=== PATIENT | male | born 1960 | race Caucasian/White ===

== ENCOUNTER 2018-10-02 11:01 | Emergency (ER) | payer OTHER ==
[2018-10-02] MEDS ORDERED: Sodium Chloride 0.9% 10 ML Syringe FLUSH PRN ×2 (11:10→12:11)
--- NOTE | 2018-10-02 11:11 | EDM.PDOC ---
ED HPI GENERAL MEDICAL PROBLEM - General Chief Complaint: Flank Pain Stated Complaint: FLANK PAIN Time Seen by Provider: 10/02/18 11:11 Source of Information: Reports: Patient History Limitations: Reports: No Limitations - History of Present Illness INITIAL COMMENTS - FREE TEXT/NARRATIVE: 58-year-old male with a history of appendicitis, lymphoma, coronary disease with stent placement 5, gout, hypercholesterolemia, and hypertension presents to the ED complaining of right lower quadrant abdominal pain. Patient states he developed pain to the right lower quadrant one day ago. Over the past week he 's developed some bloating sensation with some intermittent pain started dull ache to his right lower quadrant. Yesterday the pain has persisted. States he has a history of appendicitis January 2018. He had a fever of almost 8 days and was diagnosed with appendicitis and also lymphoma at that time. No surgery was obtained. Since patient had 5 stents placed to his coronary arteries approximately one month prior and was on Plavix. He was treated inpatient with IV antibiotics. He's had no issues since. In addition he is receiving chemotherapy for the lymphoma. Last dose was august. Pain is localized with no radiation. There is no chest pain, shortness of breath, nausea vomiting , diarrhea, constipation, dark tarry stools, bloody stools, dysuria, hematuria, testicular pain, rash, or any additional complaints. He is here on work and is supposed to return home today. Current medications include: Plavix, aspirin, Toprol, ibuprofen, Zocor, and vitamin D. Surgical history stent placement coronary disease 5. Umbilical hernia repair. Or IF of right lower extremity. Patient does not smoke. Alcohol use socially. No drug use. Left Lower Abdominal Pain Score (Numeric/FACES): 3 - Related Data Allergies Allergy/AdvReac Type Severity Reaction Status Date / Time amoxicillin Allergy Swollen Verified 10/02/18 11:10 Tongue atorvastatin [From Lipitor] Allergy Joint Pain Verified 10/02/18 11:10 Home Meds: Home Meds Allopurinol [Zyloprim] 400 mg PO DAILY 10/02/18 [History] Aspirin [Halfprin] 81 mg PO DAILY 10/02/18 [History] Cholecalciferol (Vitamin D3) [Vitamin D] 1 tab PO DAILY 10/02/18 [History] Clopidogrel [Plavix] 75 mg PO DAILY 10/02/18 [History] Metoprolol Succinate [Toprol XL 50mg] 50 mg PO DAILY 10/02/18 [History] Multivitamin [Multi-Vitamin Daily] 1 tab PO DAILY 10/02/18 [History] Simvastatin [Zocor] 40 mg PO BEDTIME 10/02/18 [History] ED ROS GENERAL - Review of Systems Review Of Systems: ROS reveals no pertinent complaints other than HPI. ED EXAM, GI/ABD - Physical Exam Exam: See Below Exam Limited By: No Limitations General Appearance: Alert, WD/WN, No Apparent Distress Ears: Hearing Grossly Normal Nose: Normal Inspection Throat/Mouth: Normal Voice, No Airway Compromise Head: Atraumatic, Normocephalic Neck: Normal Inspection, Supple Respiratory/Chest: No Respiratory Distress, Lungs Clear, Normal Breath Sounds, No Accessory Muscle Use Cardiovascular: Normal Peripheral Pulses, Regular Rate, Rhythm, No Edema, No Murmur (Obvious) GI/Abdominal Exam: Soft, No Organomegaly, No Distention, Tender (Right lower quadrant along McBurney's point. Positive rebound tenderness), Abnormal Bowel Sounds (Hyperactive) (Male) Exam: Deferred Back Exam: Normal Inspection, Full Range of Motion. No: CVA Tenderness (L), CVA Tenderness (R) Extremities: Normal Inspection, Non-Tender, No Pedal Edema Neurological: Alert, Oriented, CN II-XII Intact, Normal Cognition Psychiatric: Normal Affect, Normal Mood Skin Exam: Warm, Dry, Intact, Normal Color, No Rash Course - Vital Signs Last Recorded V/S: Last Vital Signs Temp 98.9 F 10/02/18 11:11 Pulse 90 10/02/18 11:11 Resp 18 10/02/18 11:11 BP 167/100 H 10/02/18 11:11 Pulse Ox 98 10/02/18 11:11 - Orders/Labs/Meds Orders: Active Orders 24 hr Category Date Time Status EKG 12 Lead [EKG Documentation Completion] [RC] STAT Care 10/02/18 13:55 Active Peripheral IV Care [RC] . DIRECTED Care 10/02/18 11:10 Active Peripheral IV Insertion Adult [OM.PC] Routine Oth 10/02/18 11:10 Ordered Labs: Laboratory Tests 10/02/18 10/02/18 10/02/18 Range/Units 11:27 11:27 11:27 WBC 3.97 L (4.23-9.07) K/mm3 RBC 5.23 (4.63-6.08) M/mm3 Hgb 14.2 (13.7-17.5) gm/L Hct 42.5 (40.1-51.0) % MCV 81.3 (79.0-92.2) fl MCH 27.2 (25.7-32.2) pg MCHC 33.4 (32.2-35.5) g/dl RDW Std Deviation 47.8 H (35.1-43.9) fL Plt Count 228 (163-337) K/mm3 MPV 8.0 L (9.4-12.3) fl Neutrophils % (Manual) 33 L (40-60) % Band Neutrophils % 0 (0-10) % Lymphocytes % (Manual) 46 H (20-40) % Atypical Lymphs % 0 % Monocytes % (Manual) 14 H (2-10) % Eosinophils % (Manual) 5 (0.8-7.0) % Basophils % (Manual) 2 H (0.2-1.2) Platelet Estimate Adequate RBC Morph Comment Normal PT 10.7 (9.5-12.1) SECONDS INR 0.98 APTT 27 (24-31) SECONDS Sodium 140 (136-145) mEq/L Potassium 4.7 (3.5-5.1) mEq/L Chloride 104 (98-107) mEq/L Carbon Dioxide 28 (21-32) mEq/L Anion Gap 12.7 (5-15) BUN 17 (7-18) mg/dL Creatinine 1.1 (0.7-1.3) mg/dL Est Cr Clr Drug Dosing TNP Estimated GFR (MDRD) > 60 (>60) mL/min BUN/Creatinine Ratio 15.5 (14-18) Glucose 109 H (74-106) mg/dL Calcium 9.7 (8.5-10.1) mg/dL Total Bilirubin 1.0 (0.2-1.0) mg/dL AST 27 (15-37) U/L ALT 49 (16-63) U/L Alkaline Phosphatase 76 (46-116) U/L C-Reactive Protein 2.0 H* (<1.0) mg/dL Total Protein 8.0 (6.4-8.2) g/dl Albumin 4.2 (3.4-5.0) g/dl Globulin 3.8 gm/dL Albumin/Globulin Ratio 1.1 (1-2) Urine Color (Yellow) Urine Appearance (Clear) Urine pH (5.0-8.0) Ur Specific [place] (1.005-1.030) Urine Protein (Negative) Urine Glucose (UA) (Negative) Urine Ketones (Negative) Urine Occult Blood (Negative) Urine Nitrite (Negative) Urine Bilirubin (Negative) Urine Urobilinogen (0.2-1.0) Ur Leukocyte Esterase (Negative) Urine RBC (0-5) /hpf Urine WBC (0-5) /hpf Ur Epithelial Cells (0-5) /hpf Urine Bacteria (FEW) /hpf Urine Mucus (FEW) /hpf 10/02/18 Range/Units 11:40 WBC (4.23-9.07) K/mm3 RBC (4.63-6.08) M/mm3 Hgb (13.7-17.5) gm/L Hct (40.1-51.0) % MCV (79.0-92.2) fl MCH (25.7-32.2) pg MCHC (32.2-35.5) g/dl RDW Std Deviation (35.1-43.9) fL Plt Count (163-337) K/mm3 MPV (9.4-12.3) fl Neutrophils % (Manual) (40-60) % Band Neutrophils % (0-10) % Lymphocytes % (Manual) (20-40) % Atypical Lymphs % % Monocytes % (Manual) (2-10) % Eosinophils % (Manual) (0.8-7.0) % Basophils % (Manual) (0.2-1.2) Platelet Estimate RBC Morph Comment PT (9.5-12.1) SECONDS INR APTT (24-31) SECONDS Sodium (136-145) mEq/L Potassium (3.5-5.1) mEq/L Chloride (98-107) mEq/L Carbon Dioxide (21-32) mEq/L Anion Gap (5-15) BUN (7-18) mg/dL Creatinine (0.7-1.3) mg/dL Est Cr Clr Drug Dosing Estimated GFR (MDRD) (>60) mL/min BUN/Creatinine Ratio (14-18) Glucose (74-106) mg/dL Calcium (8.5-10.1) mg/dL Total Bilirubin (0.2-1.0) mg/dL AST (15-37) U/L ALT (16-63) U/L Alkaline Phosphatase (46-116) U/L C-Reactive Protein (<1.0) mg/dL Total Protein (6.4-8.2) g/dl Albumin (3.4-5.0) g/dl Globulin gm/dL Albumin/Globulin Ratio (1-2) Urine Color Yellow (Yellow) Urine Appearance Clear (Clear) Urine pH 6.0 (5.0-8.0) Ur Specific [place] 1.015 (1.005-1.030) Urine Protein Negative (Negative) Urine Glucose (UA) Negative (Negative) Urine Ketones Negative (Negative) Urine Occult Blood Negative (Negative) Urine Nitrite Negative (Negative) Urine Bilirubin Negative (Negative) Urine Urobilinogen 0.2 (0.2-1.0) Ur Leukocyte Esterase Negative (Negative) Urine RBC Not seen (0-5) /hpf Urine WBC 0-5 (0-5) /hpf Ur Epithelial Cells 0-5 (0-5) /hpf Urine Bacteria Not seen (FEW) /hpf Urine Mucus Not seen (FEW) /hpf Meds: Medications Discontinued Medications Generic Name Dose Route Start Last Admin Trade Name Freq PRN Reason Stop Dose Admin Sodium Chloride 1,000 mls @ 250 mls/hr 10/02/18 11:15 10/02/18 12:08 Normal Saline IV 250 mls/hr ASDIRECTED LETICIA Administration Cefepime HCl 2 gm/ Premix 50 mls @ 100 mls/hr 10/02/18 13:10 10/02/18 14:25 IV 10/02/18 13:39 100 mls/hr ONETIME ONE Administration Sodium Chloride 1,000 mls @ 150 mls/hr 10/02/18 16:45 Normal Saline IV ASDIRECTED LETICIA Iopamidol 100 ml 10/02/18 12:11 10/02/18 12:21 Isovue-300 (61%) IVPUSH 10/02/18 12:12 100 ml ONETIME ONE Administration Sodium Chloride 10 ml 10/02/18 11:10 10/02/18 12:08 Saline Flush FLUSH 10 ml ASDIRECTED PRN Administration Keep Vein Open Sodium Chloride 10 ml 10/02/18 12:11 10/02/18 12:21 Saline Flush FLUSH 10 ml ONETIME PRN Administration IV FLUSH - Re-Assessments/Exams Free Text/Narrative Re-Assessment/Exam: On exam patient is afebrile with blood pressure 167/100. Heart rate 90. Temperature is 98.9 Fahrenheit. O2 sats 98% on room air. CT of the abdomen and pelvis impression: Findings compatible with appendicitis. Discuss results of the CT study with the patient. Last meal was at 0900 hrs. 1348 Patient has a history of an allergic reaction to amoxicillin. States his uvula swelled. There was no anaphylactic reaction. States with his previous hospitalization he was on cipro, vancomycin, and Flagyl. I have ordered cefepime 2 g IV. 10/02/[address] Del Real General General Surgeon has been called. She will call back when out of surgery. 10/02/18 13:56 COAG Studies ordered. EKG will be obtained. EKG: Sinus rhythm rate 86. Q waves leads 2 and aVF. Primary Q waves leads 3. Consider old inferior wall VA. 2 mL borderline prolonged. Consider left atrial hypertrophy. No acute ST changes noted. Labs reviewed. Dr. Del Real on-call general surgeon recommends patient be transferred to larger facility due to patient's history of bleeding complications off Plavix, lymphoma , and coronary disease. Patient elects to be transferred to [facility]. 10/02/18 15:40 I discussed patient with Dr. Elizabeth General Surgeon line installation supervisor at [facility]. Requests patient be transported to the E.D. Unclear if patient will undergo surgery or not. IV antibiotic therapy maybe the treatment of choice based on patients history. Discussed patient with Dr. Rosa Kyle. provider all call. He has accepted the patient. Ambulance has been paged and paperwork completed for transfer. Departure - Departure Time of Disposition: 15:57 Disposition: DC/Tfer to Acute Hospital 02 Condition: Good Clinical Impression: Acute appendicitis, CAD (coronary artery disease), [place] coronary artery, Lymphoma - Discharge Information Referrals: PCP,Not In Area [Primary Care Provider] - - My Orders Last 24 Hours: My Active Orders 10/02/18 11:10 Peripheral IV Care [RC] . DIRECTED Peripheral IV Insertion Adult [OM.PC] Routine 10/02/18 13:55 EKG 12 Lead [EKG Documentation Completion] [RC] STAT - Assessment/Plan Last 24 Hours: My Active Orders 10/02/18 11:10 Peripheral IV Care [RC] . DIRECTED Peripheral IV Insertion Adult [OM.PC] Routine 10/02/18 13:55 EKG 12 Lead [EKG Documentation Completion] [RC] STAT
[2018-10-02] MEDS ORDERED: Sodium Chloride 0.9% 1,000 ML IV SCH ×2 (11:15→16:45)
[2018-10-02] MEDS ORDERED: Iopamidol 612 MG/ML 100 ML Bottle IVPUSH ONE (12:11)
[2018-10-02] MEDS ORDERED: Cefepime 2 GM in Premix Bag 1 BAG IV ONE (13:10)
--- NOTE | 2018-10-02 13:54 | CT ---
CT abdomen and pelvis Technique: Multiple axial sections were obtained from above the dome of the diaphragm inferiorly through the pubic symphysis. Intravenous contrast was utilized. No oral contrast has been given. Delayed images were obtained through the bladder. Findings: Small portion of the visualized lung bases are clear. Liver contains no focal abnormality. Spleen appears within normal limits. Adrenal glands show no nodule. Gallbladder contains no calcified gallstones. Pancreas is within normal limits. Aorta shows atherosclerotic calcification which continues in the iliac vessels without aneurysm. Kidneys show symmetric contrast enhancement without hydronephrosis or mass. No retroperitoneal adenopathy is seen. No pelvic mass or adenopathy is seen. Appendix is dilated with surrounding inflammatory change. Findings are felt compatible with appendicitis. Bone window settings were reviewed which show severe disc space narrowing at L5-S1. Scattered Schmorl's node deformities are incidentally noted. Delayed images show contrast within the distal ureters and bladder. Impression: 1. Findings compatible with appendicitis. 2. Other incidental findings as noted above. Diagnostic code #5
--- NOTE | 2018-10-02 15:57 | PCM.CONS ---
H&P History of Present Illness - General Date of Service: 10/02/18 Source of Information: Patient, Provider - History of Present Illness Initial Comments - Free Text/Narative: The patient is a 58-year-old gentleman who presents with a 2-3 day history of abdominal discomfort. He reported that his pain worsened today, when he felt a sharp pain in his right lower quadrant. he denies any nausea or vomiting. He denies any diarrhea. Left Lower Abdominal Pain Score (Numeric/FACES): 3 - Related Data Allergies/Adverse Reactions: Allergies Allergy/AdvReac Type Severity Reaction Status Date / Time amoxicillin Allergy Swollen Verified 10/02/18 11:10 Tongue atorvastatin [From Lipitor] Allergy Joint Pain Verified 10/02/18 11:10 Home Medications: Home Meds Allopurinol [Zyloprim] 400 mg PO DAILY 10/02/18 [History] Aspirin [Halfprin] 81 mg PO DAILY 10/02/18 [History] Cholecalciferol (Vitamin D3) [Vitamin D] 1 tab PO DAILY 10/02/18 [History] Clopidogrel [Plavix] 75 mg PO DAILY 10/02/18 [History] Metoprolol Succinate [Toprol XL 50mg] 50 mg PO DAILY 10/02/18 [History] Multivitamin [Multi-Vitamin Daily] 1 tab PO DAILY 10/02/18 [History] Simvastatin [Zocor] 40 mg PO BEDTIME 10/02/18 [History] Past Medical History Cardiovascular History: Reports: CAD Oncologic (Cancer) History: Reports: Lymphoma - Past Surgical History Cardiovascular Surgical History: Reports: Coronary Artery Stent (5 stents placed on 3 occasions) Social & Family History - Family History Cardiac: Reports: CAD Endocrine/Metabolic: Reports: Diabetes, type II - Tobacco Use Smoking Status *Q: Current Status Unknown H&P Review of Systems - Review of Systems: Review Of Systems: See Below General: Reports: No Symptoms HEENT: Reports: No Symptoms Pulmonary: Reports: No Symptoms Cardiovascular: Reports: No Symptoms Gastrointestinal: Reports: Abdominal Pain Genitourinary: Reports: No Symptoms Musculoskeletal: Reports: No Symptoms Skin: Reports: No Symptoms Neurological: Reports: No Symptoms Exam - Exam Exam: See Below - Vital Signs Vital Signs: Last Vital Signs Temp 37.2 C 10/02/18 11:11 Pulse 90 10/02/18 11:11 Resp 18 10/02/18 11:11 BP 167/100 H 10/02/18 11:11 Pulse Ox 98 10/02/18 11:11 - Exam Quality Assessment: No: Supplemental Oxygen General: Alert, Oriented HEENT: Conjunctiva Clear, EOMI Neck: Supple Lungs: Normal Respiratory Effort GI/Abdominal Exam: Soft, No Distention, Tender (in RLQ) Extremities: Normal Inspection Skin: Warm, Dry, Intact Neurological: Cranial Nerves Intact Neuro Extensive - Mental Status: Oriented x3, Normal Mood/Affect - Patient Data Lab Results Last 24 hrs: Laboratory Results - last 24 hr 10/02/18 10/02/18 10/02/18 Range/Units 11:27 11:27 11:27 WBC 3.97 L (4.23-9.07) K/mm3 RBC 5.23 (4.63-6.08) M/mm3 Hgb 14.2 (13.7-17.5) gm/L Hct 42.5 (40.1-51.0) % MCV 81.3 (79.0-92.2) fl MCH 27.2 (25.7-32.2) pg MCHC 33.4 (32.2-35.5) g/dl RDW Std Deviation 47.8 H (35.1-43.9) fL Plt Count 228 (163-337) K/mm3 MPV 8.0 L (9.4-12.3) fl Neutrophils % (Manual) 33 L (40-60) % Band Neutrophils % 0 (0-10) % Lymphocytes % (Manual) 46 H (20-40) % Atypical Lymphs % 0 % Monocytes % (Manual) 14 H (2-10) % Eosinophils % (Manual) 5 (0.8-7.0) % Basophils % (Manual) 2 H (0.2-1.2) Platelet Estimate Adequate RBC Morph Comment Normal PT 10.7 (9.5-12.1) SECONDS INR 0.98 APTT 27 (24-31) SECONDS Sodium 140 (136-145) mEq/L Potassium 4.7 (3.5-5.1) mEq/L Chloride 104 (98-107) mEq/L Carbon Dioxide 28 (21-32) mEq/L Anion Gap 12.7 (5-15) BUN 17 (7-18) mg/dL Creatinine 1.1 (0.7-1.3) mg/dL Est Cr Clr Drug Dosing TNP Estimated GFR (MDRD) > 60 (>60) mL/min BUN/Creatinine Ratio 15.5 (14-18) Glucose 109 H (74-106) mg/dL Calcium 9.7 (8.5-10.1) mg/dL Total Bilirubin 1.0 (0.2-1.0) mg/dL AST 27 (15-37) U/L ALT 49 (16-63) U/L Alkaline Phosphatase 76 (46-116) U/L C-Reactive Protein 2.0 H* (<1.0) mg/dL Total Protein 8.0 (6.4-8.2) g/dl Albumin 4.2 (3.4-5.0) g/dl Globulin 3.8 gm/dL Albumin/Globulin Ratio 1.1 (1-2) Urine Color (Yellow) Urine Appearance (Clear) Urine pH (5.0-8.0) Ur Specific [place] (1.005-1.030) Urine Protein (Negative) Urine Glucose (UA) (Negative) Urine Ketones (Negative) Urine Occult Blood (Negative) Urine Nitrite (Negative) Urine Bilirubin (Negative) Urine Urobilinogen (0.2-1.0) Ur Leukocyte Esterase (Negative) Urine RBC (0-5) /hpf Urine WBC (0-5) /hpf Ur Epithelial Cells (0-5) /hpf Urine Bacteria (FEW) /hpf Urine Mucus (FEW) /hpf 10/02/18 Range/Units 11:40 WBC (4.23-9.07) K/mm3 RBC (4.63-6.08) M/mm3 Hgb (13.7-17.5) gm/L Hct (40.1-51.0) % MCV (79.0-92.2) fl MCH (25.7-32.2) pg MCHC (32.2-35.5) g/dl RDW Std Deviation (35.1-43.9) fL Plt Count (163-337) K/mm3 MPV (9.4-12.3) fl Neutrophils % (Manual) (40-60) % Band Neutrophils % (0-10) % Lymphocytes % (Manual) (20-40) % Atypical Lymphs % % Monocytes % (Manual) (2-10) % Eosinophils % (Manual) (0.8-7.0) % Basophils % (Manual) (0.2-1.2) Platelet Estimate RBC Morph Comment PT (9.5-12.1) SECONDS INR APTT (24-31) SECONDS Sodium (136-145) mEq/L Potassium (3.5-5.1) mEq/L Chloride (98-107) mEq/L Carbon Dioxide (21-32) mEq/L Anion Gap (5-15) BUN (7-18) mg/dL Creatinine (0.7-1.3) mg/dL Est Cr Clr Drug Dosing Estimated GFR (MDRD) (>60) mL/min BUN/Creatinine Ratio (14-18) Glucose (74-106) mg/dL Calcium (8.5-10.1) mg/dL Total Bilirubin (0.2-1.0) mg/dL AST (15-37) U/L ALT (16-63) U/L Alkaline Phosphatase (46-116) U/L C-Reactive Protein (<1.0) mg/dL Total Protein (6.4-8.2) g/dl Albumin (3.4-5.0) g/dl Globulin gm/dL Albumin/Globulin Ratio (1-2) Urine Color Yellow (Yellow) Urine Appearance Clear (Clear) Urine pH 6.0 (5.0-8.0) Ur Specific [place] 1.015 (1.005-1.030) Urine Protein Negative (Negative) Urine Glucose (UA) Negative (Negative) Urine Ketones Negative (Negative) Urine Occult Blood Negative (Negative) Urine Nitrite Negative (Negative) Urine Bilirubin Negative (Negative) Urine Urobilinogen 0.2 (0.2-1.0) Ur Leukocyte Esterase Negative (Negative) Urine RBC Not seen (0-5) /hpf Urine WBC 0-5 (0-5) /hpf Ur Epithelial Cells 0-5 (0-5) /hpf Urine Bacteria Not seen (FEW) /hpf Urine Mucus Not seen (FEW) /hpf Result Diagrams: 10/02/18 11:27 10/02/18 11:27 Consult PN Assessment/Plan (1) Acute appendicitis SNOMED Code(s): 39393542 Code(s): K35.80 - UNSPECIFIED ACUTE APPENDICITIS Current Visit: Yes Qualifiers: Appendicitis gangrene presence: unspecified whether gangrene present Appendicitis perforation presence: without perforation Appendicitis abscess presence: without abscess Problem List Initiated/Reviewed/Updated: Yes Plan: 58-year-old gentleman with acute appendicitis. The patient has multiple medical comorbidities - after discussion with the patient and ( VIA TELEPHONE), the patient opted to be transferred to [place] for further care as we do not have cardiology services and do not have platelets available - ED notified Tamiko Burton MD General Surgery
== END 2018-10-02 16:45 ==
LOC: JD.ED 11:01
DX: K35.80 Unspecified acute appendicitis (principal); I25.10 Atherosclerotic heart disease of native coronary artery without angina pectoris; C85.90 Non-Hodgkin lymphoma, unspecified, unspecified site; Z79.82 Long term (current) use of aspirin; Z79.899 Other long term (current) drug therapy; Z88.1 Allergy status to other antibiotic agents
CPT/HCPCS: 36415; 74177; 80053; 81001; 85007; 85027; 85610; 85730; 86140; 93005; 96361; 96365; 99285; J0692; J7040; Q9967; 93010